=== PATIENT | male | born 1950 | race Caucasian/White ===

== ENCOUNTER → 2024-06-25 14:37 | Outpatient (REF) | payer MEDICARE, OTHER, SELFPAY | LOC: HWRAD 14:37 | PROVIDERS: ATTENDING PHYSICIAN Specialist; FAMILY PHYSICIAN Internal Medicine | DX: R31.0 Gross hematuria (principal) | CPT/HCPCS: 74176 ==

== ENCOUNTER → 2024-07-01 09:02 | Outpatient (REF) | payer MEDICARE, OTHER, SELFPAY ==
[2024-07-01 11:25] LABS: Hematocrit 47.3 % (39.0-52.0); Hemoglobin 15.3 g/dL (13.0-18.0); Mean Corp Hgb Conc. 32.3 g/dL (33.0-37.0); Mean Corpuscular Hgb 32.7 pg (27.0-31.0); Mean Corpuscular Volume 101.1 fL (80.0-94.0); Mean Platelet Volume 10.2 fL (7.4-10.4); Platelet Count 148 10^3/uL (130-400); Red Blood Cell Count 4.68 10^6/uL (4.70-6.10); Red Cell Dist. Width 13.8 % (11.5-14.5); White Blood Cell Count 7.3 10^3/uL (4.8-10.8)
== END ==
LOC: SDSPAT 09:02
PROVIDERS: ATTENDING PHYSICIAN Specialist; FAMILY PHYSICIAN Internal Medicine
DX: Z01.818 Encounter for other preprocedural examination (principal)
CPT/HCPCS: 36415; 85027; 93005

== ENCOUNTER 2024-07-04 10:19 | Inpatient (IN) | payer MEDICARE, OTHER, SELFPAY ==
[2024-07-01 14:19] VITALS: BMI 25.5
[2024-07-04] VITALS (24 sets, daily range): BP systolic 106–134; BP diastolic 54–103; BMI 25.5
[2024-07-04] MEDS: NORMOSOL-R/PLASMALYTE-A 1000 IV (07:49)
--- NOTE | 2024-07-04 10:10 | W.PN.ADMIT ---
Progress Note - Admit
Progress Note - Admit
pt s/p TURBT and right retrograde- right stent could not placed
admit for hematuria/pain control and possible right perc tube
[2024-07-04] MEDS: VALIUM INJECTION 5 MG IV (10:24)
[2024-07-04 10:57] LABS: Calcium 9.1 mg/dl (8.4-10.2); Carbon Dioxide 24 mmol/L (22-30); Chloride 105 mmol/L (98-107); Estimated Creatinine Clearance 57 ml/min; Glucose 129 mg/dl (70-99); Potassium 5.5 mmol/L (3.5-5.1); Sodium 137 mmol/L (135-145); eGFR > 60.00
[2024-07-04] MEDS: DILAUDID 0.5 MG IV ×3 (10:58→21:08)
[2024-07-04] MEDS: DETROL LA 4 MG PO (11:02)
[2024-07-04 11:12] LABS: Blood Urea Nitrogen 26 mg/dl (9-20); Hemoglobin 15.3 g/dL (13.0-18.0); Mean Corp Hgb Conc. 33.3 g/dL (33.0-37.0); Mean Corpuscular Hgb 33.1 pg (27.0-31.0); Mean Corpuscular Volume 99.6 fL (80.0-94.0); Mean Platelet Volume 9.5 fL (7.4-10.4); Platelet Count 135 10^3/uL (130-400); Red Blood Cell Count 4.62 10^6/uL (4.70-6.10); Red Cell Dist. Width 13.6 % (11.5-14.5); White Blood Cell Count 8.2 10^3/uL (4.8-10.8)
[2024-07-04] MEDS: NSS 1000 IV (14:54)
[2024-07-04] MEDS: LIDOCAINE URO-JET 2% 1 SYRINGE TOPICAL ×2 (17:19→20:17)
--- NOTE | 2024-07-04 17:55 | PTCARENOTE ---
Received patient from PACU around 1440 via bed in stable condition. CBI to [address] [place] with clear orange urine. Catheter traction released at 1600 as ordered. Patient denied pain on admission. Call bronson in reach.
[2024-07-04] MEDS: MACROBID 100 MG PO (20:17)
[2024-07-04] MEDS: COLACE 100 MG PO (20:17)
[2024-07-04] MEDS: ANESTHETIC LOZENGE 1 LOZENGE PO (20:57)
[2024-07-04] MEDS: AMBIEN 5 MG PO (21:07)
[2024-07-05] MEDS: NSS 1000 IV (02:55)
[2024-07-05 03:00] VITALS: BP 123/74
[2024-07-05] MEDS: SYNTHROID 100 MCG PO (06:33)
[2024-07-05 07:03] LABS: Hematocrit 42.6 % (39.0-52.0); Hemoglobin 14.4 g/dL (13.0-18.0); Mean Corp Hgb Conc. 33.8 g/dL (33.0-37.0); Mean Corpuscular Hgb 33.5 pg (27.0-31.0); Mean Corpuscular Volume 99.1 fL (80.0-94.0); Mean Platelet Volume 9.7 fL (7.4-10.4); Platelet Count 140 10^3/uL (130-400); Red Cell Dist. Width 13.2 % (11.5-14.5); White Blood Cell Count 15.1 10^3/uL (4.8-10.8)
[2024-07-05 07:10] VITALS: BP 119/65
[2024-07-05 07:14] LABS: Blood Urea Nitrogen 19 mg/dl (9-20); Calcium 9.1 mg/dl (8.4-10.2); Carbon Dioxide 27 mmol/L (22-30); Chloride 107 mmol/L (98-107); Estimated Creatinine Clearance 62 ml/min; Glucose 123 mg/dl (70-99); Potassium 4.3 mmol/L (3.5-5.1); Sodium 140 mmol/L (135-145); eGFR > 60.00
--- NOTE | 2024-07-05 07:36 | W.PN.URO.CBU ---
Today's Communication / Plan
-
stop cbi and observe for hematuria
Assessment / Plan
-
s/p TURBT
urine clearing
no flank pain
cr stable
plan to wean/stob cbi today
UOOB/regular diet
leg bag teaching
discharge in am if stable
Diagnosis
-
Date of Service: July 05, 2024
-
Patient Diagnosis:
bladder and ureteral tumor
Post Op Day:
turbt 07/04
Subjective
-
pt more comfortable- occ spasm
urine clearing
labs stable
Objective
-
Vital Signs
Temp Pulse Resp BP Pulse Ox
97.5 F 72 16 123/74 95
07/05/24 03:00 07/05/24 03:00 07/05/24 03:00 07/05/24 03:00 07/05/24 03:00
Intake and Output
07/04/24 07/05/24 07/06/24
06:59 06:59 06:59
Intake Total 2310 / 2310
Output Total 5900 / 5900
Balance -3590 / -3590
Intake:
Oral fluids 720 / 720
IV fluids (Total) 1590 / 1590
Normosol 350 / 350
Output:
Urine, [place] 900 / 900
True Urine Output from CBI 5000 / 5000
Laboratory Results
07/05/24 06:23
07/05/24 06:23
Review of Systems
-
Constitutional: Fatigue
Respiratory: No Symptoms
Cardiac: No Symptoms
Abdomen/GI: No Symptoms
Physical Exam
-
General -no acute distress
Abdomen - soft, non-tender
Genitalia - [place] in place
[2024-07-05] MEDS: MACROBID 100 MG PO ×2 (08:42→19:45)
[2024-07-05] MEDS: FLOMAX 0.4 MG PO (08:42)
[2024-07-05] MEDS: COLACE 100 MG PO ×2 (08:42→19:45)
[2024-07-05] MEDS: DETROL LA 4 MG PO (08:42)
--- NOTE | 2024-07-05 10:38 | CM ---
Initial assessment completed
Pt lives in a 1 story condo; 2 SON[employer],FF set-up
Independent, employed, drives
DME - none
SNF -denies past hx
HH - has had in past; unsure of agency
Has ride at d/c
PCP - Matt Bearden
Pharm - [facility]
Plan - anticipate home no needs
[2024-07-05 11:15] VITALS: BP 128/73
[2024-07-05] MEDS: TYLENOL 650 MG PO (13:05)
[2024-07-05] MEDS: LIDOCAINE URO-JET 2% 1 SYRINGE TOPICAL (13:38)
[2024-07-05 15:40] VITALS: BP 112/68
[2024-07-05] MEDS: VALIUM INJECTION 5 MG IV (17:57)
[2024-07-05] MEDS: AMBIEN 5 MG PO (21:27)
[2024-07-05 23:22] VITALS: BP 118/64
[2024-07-06] MEDS: VALIUM INJECTION 5 MG IV (01:29)
[2024-07-06] MEDS: SYNTHROID 100 MCG PO (06:08)
[2024-07-06 07:10] VITALS: BP 129/78
[2024-07-06] MEDS: MACROBID 100 MG PO (08:30)
[2024-07-06] MEDS: FLOMAX 0.4 MG PO (08:30)
[2024-07-06] MEDS: COLACE 100 MG PO (08:30)
[2024-07-06] MEDS: DETROL LA 4 MG PO (08:30)
--- NOTE | 2024-07-06 08:42 | W.PN.URO.CBU ---
Today's Communication / Plan
-
home today
Assessment / Plan
-
s/p TURBT
urine clearing
no flank pain
cr stable
urine clear
for discharge today
did review pathology report with patient; he will come in monday for [place] removal and coordination of next treatment steps
Diagnosis
-
Date of Service: July 06, 2024
-
Patient Diagnosis:
bladder and ureteral tumor
Post Op Day:
turbt 07/04
Subjective
-
pt stable
urine clear off cbi
some occ bladder spasms
Objective
-
Vital Signs
Temp Pulse Resp BP Pulse Ox
98.1 F 76 16 129/78 97
07/06/24 07:10 07/06/24 07:10 07/06/24 07:10 07/06/24 07:10 07/06/24 07:10
Intake and Output
07/05/24 07/06/24 07/07/24
06:59 06:59 06:59
Intake Total 2310 / 2310 480 / 480 480 / 480
Output Total 5900 / 5900 750 / 750 600 / 600
Balance -3590 / -3590 -270 / -270 -120 / -120
Intake:
Oral fluids 720 / 720 480 / 480 480 / 480
IV fluids (Total) 1590 / 1590
Normosol 350 / 350
Output:
Urine, [place] 900 / 900 650 / 650 600 / 600
True Urine Output from CBI 5000 / 5000 100 / 100
Laboratory Results
07/05/24 06:23
07/05/24 06:23
Review of Systems
-
Constitutional: Fatigue
Respiratory: No Symptoms
Cardiac: No Symptoms
Physical Exam
-
General - no acute distress
Abdomen - soft, non-tender
Genitalia - normal- [place] in place- urine clear
--- NOTE | 2024-07-06 08:46 | W.DS.TRANS ---
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
-
Discharge Instructions:
Sleep Apnea Risk Low
Discharge Diagnosis/Procedures you had a transurethral resection fo a bladder
tumor
Diet No restrictions
Activity No strenuous activity
Additional Activity no lifting over 10lbs for 7 days
Driving Restrictions may drive to your appointment on monday if
needed
Bathing Restrictions OK to Shower
Wound Care expect some blood in urine and blood around
[place]- also expect some bladder spasms
Instructions:
Stand-Alone Forms:
Changes to Home Medications: No
Discharge Medications:
DC Medications w/original date entered in [employer]
levothyroxine 100 mcg tablet 100 mcg PO DAILY Thyroid 02/27/17
sumatriptan succinate 50 mg tablet 50 mg PO PRN PRN migraine 02/27/18
Prostate Sr/[place] 640 mg PO DAILY 07/01/24
testosterone 1.62 % (40.5 mg/2.5 gram) transdermal gel packet 20.25 mg topical DAILY Hormonal Agent 07/01/24
zolpidem 5 mg tablet 5 mg PO HS PRN insomnia 07/01/24
nitrofurantoin monohydrate/macrocrystals 100 mg capsule (Macrobid) 100 mg PO Q12H 5 days #10 caps 07/04/24
phenazopyridine 100 mg tablet (Pyridium) 100 mg PO BID #30 tabs 07/04/24
phenazopyridine 200 mg tablet (Pyridium) 200 mg PO BID 07/04/24
tramadol 50 mg tablet 50 mg PO Q8H PRN Pain #20 tabs 07/04/24
tamsulosin 0.4 mg capsule 0.4 mg PO HS #30 caps 07/06/24
Home Medication Changes
Pending Results: No
[2024-07-06 11:13] VITALS: BP 132/84
--- NOTE | 2024-07-06 16:57 | CM ---
Patient who is s/p s/p TURBT.
Met with patient who was preparing for discharge.
The patient says he feels ready for discharge home today. IMM completed. His friend Melba will provide a ride home.
No CM d/c needs identified.
Plan home today.
== END 2024-07-06 11:31 | disposition home or self-care (01) | DRG 669 ==
LOC: 2 SOUTH 10:19
PROVIDERS: ADMITTING PHYSICIAN Specialist
PROC: 0TBB8ZZ Excision of Bladder, Via Natural or Artificial Opening Endoscopic (ICD-10-PCS; 2024-07-04)
PROC: 0TJ98ZZ Inspection of Ureter, Via Natural or Artificial Opening Endoscopic (ICD-10-PCS; 2024-07-04)
PROC: BT1D1ZZ Fluoroscopy of Right Kidney, Ureter and Bladder using Low Osmolar Contrast (ICD-10-PCS; 2024-07-04)
DX: C67.0 Malignant neoplasm of trigone of bladder (principal); N13.30 Unspecified hydronephrosis; E03.9 Hypothyroidism, unspecified; R31.0 Gross hematuria; G43.909 Migraine, unspecified, not intractable, without status migrainosus; E29.1 Testicular hypofunction; Z96.653 Presence of artificial knee joint, bilateral; Z79.890 Hormone replacement therapy; Z79.899 Other long term (current) drug therapy
CPT/HCPCS: 88307; 36415; 74420; 76000; 80048; 85027; 88112; 93005